=== PATIENT | female | born 2000 | race Caucasian/White ===

== ENCOUNTER 2023-03-06 22:44 | Inpatient (IN) | payer BC, MEDICAID ==
[~2023-03-06] VITALS: Ht 172.7 cm; Wt 63.5 kg
[2023-03-06 23:15] VITALS: BP 121/76; PULSE 89; RESP 17; TEMP 98.7; O2SAT 98
[2023-03-07 00:04] LABS: FLU A ANTIGEN negative (NEGATIVE); FLU B ANTIGEN NEGATIVE (NEGATIVE)
[2023-03-07] MEDS ORDERED: LORazepam 1 MG TAB PO ONE (01:45)
[2023-03-07] MEDS ORDERED: NACL 0.9% 1,000 ML IV ONE (01:45)
[2023-03-07 02:05] LABS: BASOPHILS % (AUTO) 0.8 % (0.0-2.0); EOSINOPHILS # (AUTO) 0.1 K/uL (0-0.4); EOSINOPHILS % (AUTO) 2.2 % (0.0-4.0); HEMATOCRIT 36.9 % (36-48); HEMOGLOBIN 12.8 g/dL (12.0-16.0); LYMPHOCYTES # (AUTO) 2.3 K/uL (2.5-16.5); LYMPHOCYTES % (AUTO) 46.4 % (20.5-51.1); MEAN CORPUSCULAR HEMOGLOBIN 28 pg (27-31); MEAN CORPUSCULAR HGB CONC 35 g/dL (33-37); MEAN CORPUSCULAR VOLUME 81.4 fL (80-94); MONOCYTES # (AUTO) 0.3 K/uL (0.8-1.0); MONOCYTES % (AUTO) 5.4 % (1.7-9.3); NEUTROPHILS # (AUTO) 2.2 K/uL (1.8-7.7); NEUTROPHILS % (AUTO) 45.2 % (42.2-75.2); PLATELET COUNT (AUTO) 287 K/uL (140-450); RED BLOOD CELL COUNT(AUTO) 4.53 MIL/uL (4.20-5.40); RED CELL DISTRIBUTION WIDTH 14.3 % (11.6-13.7)
[2023-03-07 02:22] LABS: ANION GAP 13.4 (8-16); CARBON DIOXIDE 26.9 mmol/L (21-32); CHLORIDE 102 mmol/L (98-107); POTASSIUM 4.3 mmol/L (3.5-5.1); SODIUM SERUM 138 mmol/L (136-145)
[2023-03-07 02:34] LABS: ALANINE AMINOTRANSFERASE 17 U/L (12-78); ALBUMIN 4.1 g/dL (3.4-5.0); ALKALINE PHOSPHATASE 58 U/L (50-136); ASPARTATE AMINOTRANSFERASE 14 U/L (15-37); CALCIUM 9.2 mg/dL (8.5-10.1); CREATINE KINASE, TOTAL 41 U/L (26-192); CREATININE 0.7 mg/dL (0.6-1.3); GFR ARICAN-AMERICAN 137 mL/min (>90); GFR NON ARICAN-AMERICAN 113 mL/min (>90); GLUCOSE 99 mg/dL (74-106); MAGNESIUM 1.9 mg/dL (1.8-2.4); TOTAL BILIRUBIN 0.3 mg/dL (0.0-1.0); TOTAL PROTEIN, SERUM 7.8 g/dL (6.4-8.2); UREA NITROGEN, BLOOD 16 mg/dL (7-18)
[2023-03-07] MEDS ORDERED: ONDANSETRON 4 MG/2 ML VIAL IVP PRN (05:55)
[2023-03-07] MEDS ORDERED: POTASSIUM CHLORIDE 10 MEQ TABER PO PRN (05:55)
[2023-03-07] MEDS ORDERED: MAG SULF 2000 MG/WATER PREMIX 50 ML IV PRN (05:55)
[2023-03-07] MEDS ORDERED: ZOLPIDEM 10 MG TAB PO PRN (05:55)
[2023-03-07] MEDS ORDERED: DOCUSATE SODIUM 100 MG GELCAP PO PRN (05:55)
[2023-03-07] MEDS ORDERED: ACETAMINOPHEN 325 MG TAB PO PRN (05:55)
[2023-03-07] MEDS ORDERED: MORPHINE SULFATE 2 MG/ML SYR IVP PRN (05:55)
[2023-03-07 08:05] LABS: THYROID STIMULATING HORMONE 3.62 uIU/mL (0.34-3.74)
[2023-03-07] MEDS: ENOXAPARIN 40 MG/0.4 ML SYR SUBQ SCH (09:47)
[2023-03-07 21:00] VITALS: BP 114/73; PULSE 85; RESP 18; TEMP 98.5
[2023-03-07 22:29] VITALS: PULSE 81; RESP 15; O2SAT 99
[2023-03-08] MEDS: NACL 0.9% 1,000 ML IV SCH (01:00)
[2023-03-08 04:00] VITALS: BP 119/79; PULSE 85; RESP 15; TEMP 98.4; O2SAT 99
[2023-03-08 08:00] VITALS: BP 92/54; PULSE 71; RESP 18; TEMP 97.2; O2SAT 100
[2023-03-08 09:06] LABS: HEMOGLOBIN A1C 5.5 % (4.8-5.6); HOMOCYSTEINE, PLASMA 7.4 umol/L (0.0-14.5)
[2023-03-08] MEDS: ENOXAPARIN 40 MG/0.4 ML SYR SUBQ SCH (09:58)
[2023-03-08] MEDS ORDERED: DEXTROSE 50% 50 ML SYR IVP PRN (11:30)
[2023-03-08 11:54] LABS: EOSINOPHILS # (AUTO) 0.1 K/uL (0-0.4); EOSINOPHILS % (AUTO) 1.5 % (0.0-4.0); HEMATOCRIT 35.5 % (36-48); HEMOGLOBIN 12.2 g/dL (12.0-16.0); LYMPHOCYTES # (AUTO) 1.3 K/uL (2.5-16.5); LYMPHOCYTES % (AUTO) 35.9 % (20.5-51.1); MEAN CORPUSCULAR HEMOGLOBIN 28 pg (27-31); MEAN CORPUSCULAR HGB CONC 34 g/dL (33-37); MONOCYTES # (AUTO) 0.2 K/uL (0.8-1.0); MONOCYTES % (AUTO) 6.3 % (1.7-9.3); NEUTROPHILS % (AUTO) 55.3 % (42.2-75.2); PLATELET COUNT (AUTO) 258 K/uL (140-450); RED BLOOD CELL COUNT(AUTO) 4.32 MIL/uL (4.20-5.40); RED CELL DISTRIBUTION WIDTH 14.4 % (11.6-13.7); WHITE BLOOD COUNT (AUTO) 3.6 K/uL (4.5-11.0)
[2023-03-08 11:59] LABS: AMPHETAMINE, URINE NEGATIVE ng/ml (NEG <=1000); BARBITURATE, URINE NEGATIVE ng/ml (NEG <=200); BENZODIAZEPINE, URINE POSITIVE ng/mL (NEG <=200); CANNABINOID, URINE NEGATIVE ng/mL (NEG <=50); COCAINE, URINE NEGATIVE ng/mL (NEG <=300); OPIATE, URINE NEGATIVE ng/mL (NEG <=2000); PHENCYCLIDINE SCREEN,URINE NEGATIVE ng/mL (NEG <=25)
[2023-03-08] MEDS: BLOOD GLUCOSE MONITORING 1 DEV DEV FS SCH ×3 (12:02→21:00)
[2023-03-08 12:32] LABS: ALBUMIN 3.8 g/dL (3.4-5.0); ANION GAP 12.2 (8-16); CALCIUM 9.1 mg/dL (8.5-10.1); CARBON DIOXIDE 26.6 mmol/L (21-32); CREATININE 0.7 mg/dL (0.6-1.3); POTASSIUM 3.8 mmol/L (3.5-5.1); TOTAL BILIRUBIN 0.2 mg/dL (0.0-1.0); TOTAL PROTEIN, SERUM 7.3 g/dL (6.4-8.2)
[2023-03-08] MEDS ORDERED: METHYLPREDNISOLONE SS IV SCH (13:00)
[2023-03-08] MEDS ORDERED: DEXTROSE 5% IV SCH (13:00)
[2023-03-08 15:06] LABS: ANTI-NUCLEAR ANTIBODY,DIRECT Negative (Negative)
[2023-03-08 16:00] VITALS: BP 116/60; PULSE 76; RESP 18; TEMP 97.6; O2SAT 100
[2023-03-08] MEDS: INSULIN LISPRO SLIDING SCALE 100 UNITS/ML VIAL SUBQ PRN ×2 (16:57→22:17)
[2023-03-08] MEDS ORDERED: VANCOMYCIN PER PHARMACY MC PRN (17:25)
[2023-03-08] MEDS ORDERED: ACYCLOVIR IV PER PHARMACY MC PRN (17:25)
[2023-03-08 20:00] VITALS: BP 118/66; PULSE 85; RESP 17; TEMP 97.7; O2SAT 100; O2SAT 99
[2023-03-08] MEDS ORDERED: CEFEPIME 2,000 MG in DEXTROSE 5% 100 ML IV SCH (21:00)
[2023-03-08] MEDS: PANTOPRAZOLE 40 MG TABEC PO SCH (22:08)
[2023-03-09] MEDS: CEFEPIME 2,000 MG in DEXTROSE 5% 100 ML IV SCH ×2 (01:44→09:32)
[2023-03-09 04:00] VITALS: BP 108/63; PULSE 73; RESP 18; TEMP 97.1; O2SAT 99
[2023-03-09] MEDS: NACL 0.9% 1,000 ML IV SCH (04:00)
[2023-03-09 06:31] LABS: BASOPHILS % (AUTO) 0.1 % (0.0-2.0); HEMATOCRIT 34.6 % (36-48); HEMOGLOBIN 11.8 g/dL (12.0-16.0); LYMPHOCYTES # (AUTO) 0.6 K/uL (2.5-16.5); LYMPHOCYTES % (AUTO) 12.6 % (20.5-51.1); MEAN CORPUSCULAR HEMOGLOBIN 28 pg (27-31); MEAN CORPUSCULAR HGB CONC 34 g/dL (33-37); MEAN CORPUSCULAR VOLUME 82.1 fL (80-94); MONOCYTES % (AUTO) 0.8 % (1.7-9.3); NEUTROPHILS # (AUTO) 4.5 K/uL (1.8-7.7); NEUTROPHILS % (AUTO) 86.5 % (42.2-75.2); PLATELET COUNT (AUTO) 284 K/uL (140-450); RED BLOOD CELL COUNT(AUTO) 4.21 MIL/uL (4.20-5.40); RED CELL DISTRIBUTION WIDTH 14.5 % (11.6-13.7); WHITE BLOOD COUNT (AUTO) 5.2 K/uL (4.5-11.0)
[2023-03-09] MEDS: BLOOD GLUCOSE MONITORING 1 DEV DEV FS SCH ×2 (06:46→11:59)
[2023-03-09] MEDS: INSULIN LISPRO SLIDING SCALE 100 UNITS/ML VIAL SUBQ PRN ×2 (06:49→12:02)
[2023-03-09 06:53] LABS: ALBUMIN 3.8 g/dL (3.4-5.0); ANION GAP 15.7 (8-16); CALCIUM 9.1 mg/dL (8.5-10.1); CARBON DIOXIDE 22.6 mmol/L (21-32); CREATININE 0.6 mg/dL (0.6-1.3); POTASSIUM 4.3 mmol/L (3.5-5.1); TOTAL BILIRUBIN 0.2 mg/dL (0.0-1.0); TOTAL PROTEIN, SERUM 7.3 g/dL (6.4-8.2)
[2023-03-09 08:00] VITALS: BP 108/67; PULSE 81; RESP 18; TEMP 97.5; O2SAT 97
[2023-03-09 08:55] VITALS: PULSE 81; RESP 18; O2SAT 97
[2023-03-09] MEDS ORDERED: methylPREDNISolone SS 125 MG/2 ML VIAL IVP SCH (09:00)
[2023-03-09] MEDS ORDERED: ACYCLOVIR 500 MG in NACL 0.9% 100 ML IV SCH (09:00)
[2023-03-09] MEDS ORDERED: ENOXAPARIN 40 MG/0.4 ML SYR SUBQ SCH (09:00)
[2023-03-09] MEDS: PANTOPRAZOLE 40 MG TABEC PO SCH (09:50)
[2023-03-09 10:00] VITALS: PULSE 115
[2023-03-09] MEDS ORDERED: VANCOMYCIN 1,000 MG in DEXTROSE 5% 250 ML IV SCH (10:00)
[2023-03-09] MEDS ORDERED: LORazepam 2 MG/ML VIAL IVP ONE (10:05)
[2023-03-09] MEDS ORDERED: LORazepam 1 MG TAB PO SCH (10:13)
== END 2023-03-09 13:15 | disposition short-term general hospital (02) | DRG 96 ==
LOC: MED 22:44 → MMU 03-07 04:57 → MTU 03-07 20:20
PROVIDERS: ADMIT Family Medicine; ATTEND Family Medicine
DX: G61.0 Guillain-Barre syndrome (principal); F41.1 Generalized anxiety disorder; Z20.822 Contact with and (suspected) exposure to COVID-19
CPT/HCPCS: 36415; 70450; 71045; 72125; 72128; 72133; 80053; 80305; 82550; 82607; 82948; 83036; 83735; 84443; 84484; 85025; 85379; 85651; 86038; 86140; 86592; 87081; 96360; 97116; 97163-GP; 99285; J0133; J0692; J1650; J1815; J2930; J3370; J7060; Q0092